=== PATIENT | female | born 1950 ===

== ENCOUNTER 2018-06-01 14:33 | Outpatient (CLI) | payer OTHER ==
[~2018-06-01] VITALS: Ht 167.6 cm; Wt 94.8 kg
== END 2018-06-01 14:45 | disposition home or self-care (01) ==
LOC: OFIC 805 14:33
DX: H74.8X3 Other specified disorders of middle ear and mastoid, bilateral (principal); H91.8X3 Other specified hearing loss, bilateral; R42 Dizziness and giddiness